=== PATIENT | female | born 1935 | race Caucasian/White ===

== ENCOUNTER 2020-03-31 12:01 | Outpatient (REF) | payer MEDICARE, OTHER, SELFPAY ==
[2020-03-31 12:36] LABS: COVID-19 Test Negative (Negative); IDNOW Serial# 55D5AD1C
== END 2020-03-31 12:02 | disposition home or self-care (01) ==
LOC: HO.LAB 12:01
PROVIDERS: Visit Provider Internal Medicine
DX: Z20.822 Contact with and (suspected) exposure to COVID-19 (principal)
CPT/HCPCS: 36415; 87635; C9803

== ENCOUNTER 2020-05-02 10:20 | Emergency (ER) | payer MEDICARE, OTHER, SELFPAY ==
--- NOTE | ~2020-05-02 | CT_ITS ---
EXAMINATION: CT ABDOMEN AND PELVIS WITHOUT CONTRAST CLINICAL INFORMATION: Atraumatic left hip/flank pain COMPARISON: None TECHNIQUE: Multidetector volumetric imaging was performed from the superior aspect of the liver through the pubic symphysis. Sagittal and coronal reformatted images were obtained on the technologist's workstation. This CT examination was performed using dose optimization techniques as appropriate, variously including the following: *Automated exposure control *Adjustment of mA and/or kV according to patient size (this includes techniques or standardized protocols for targeted exams where dose is matched to indication/reason for exam; i.e. extremities or head) *Use of iterative reconstruction technique DLP: 855 mGy-cm FINDINGS: LUNG BASES: The visualized lung bases are unremarkable. LIVER, GALLBLADDER, AND BILIARY TREE: The liver is normal in size, shape, and attenuation. No focal hepatic lesion or biliary ductal dilatation is present. There are gallstones in the gallbladder. PANCREAS: Unremarkable. SPLEEN: Unremarkable. ADRENAL GLANDS: Unremarkable. KIDNEYS AND URETERS: There are multiple left renal cysts. No stone or hydronephrosis is seen. BLADDER: Unremarkable. GASTROINTESTINAL TRACT: There is diverticulosis of the colon. No evidence of diverticulitis is seen. Small and large bowel are otherwise unremarkable. The appendix is unremarkable. Small hiatal hernia. ABDOMINAL WALL: No significant hernia is appreciated. LYMPH NODES: Normal. VASCULAR: Unremarkable. PELVIC VISCERA: There is low-attenuation seen centrally in the uterus questionable for endometrial fluid or thickening. Endometrial thickness measures 1.1 cm in AP dimension by CT which is abnormally thickened for a postmenopausal patient. The uterus and adnexa are otherwise unremarkable. OSSEOUS STRUCTURES: Unremarkable. CT/CT abdomen pelvis wo con IMPRESSION: 1. Gallstones. Diverticulosis. No evidence of diverticulitis. Left renal cysts. 2. Low-attenuation seen centrally in the uterus questionable for endometrial fluid or thickening. The endometrium appears abnormally thickened for a postmenopausal patient. Follow-up pelvic ultrasound should be considered particularly if there is history of vaginal bleeding.
--- NOTE | ~2020-05-02 | US_ITS ---
EXAMINATION: PELVIC ULTRASOUND CLINICAL INFORMATION: Evaluate thickened endometrium seen on CT scan COMPARISON: Previous CT scan of the abdomen and pelvis from earlier the same day TECHNIQUE: Transabdominal and transvaginal pelvic ultrasound was performed. Transvaginal exam was performed for better visualization of the uterus and ovaries. FINDINGS: The uterus is anteverted and measures 8.2 x 4.1 x 5 cm in dimension. There are 3 small focal uterine lesions suggestive of fibroids measuring 1 cm in the anterior uterine body, 1.3 cm in the anterior uterine body and 1 x 1.5 cm in the posterior uterine body. There is fluid seen within the superior endometrial cavity. More inferiorly in the lower uterine segment there is endometrial thickening measuring 1.1 cm. This is abnormally thickened for a postmenopausal patient. Appearance is questionable for obstruction. There are nabothian cysts in the cervix. The ovaries are seen transabdominally only and are normal-appearing. The right ovary measures 1.6 x 1.7 x 1.4 cm in the left ovary measures 2.6 x 1.8 x 3.2 cm. There is no fluid in the pelvis. US/US transvaginal IMPRESSION: Fluid-filled endometrial cavity. Abnormally thickened endometrium measuring 1.1 cm in the lower uterine segment questionable for obstructing lesion. INTERNAL AUDITOR consultation and tissue sampling recommended. Small uterine fibroids. Normal-appearing ovaries.
--- NOTE | ~2020-05-02 | US_ITS ---
EXAMINATION: PELVIC ULTRASOUND CLINICAL INFORMATION: Evaluate thickened endometrium seen on CT scan COMPARISON: Previous CT scan of the abdomen and pelvis from earlier the same day TECHNIQUE: Transabdominal and transvaginal pelvic ultrasound was performed. Transvaginal exam was performed for better visualization of the uterus and ovaries. FINDINGS: The uterus is anteverted and measures 8.2 x 4.1 x 5 cm in dimension. There are 3 small focal uterine lesions suggestive of fibroids measuring 1 cm in the anterior uterine body, 1.3 cm in the anterior uterine body and 1 x 1.5 cm in the posterior uterine body. There is fluid seen within the superior endometrial cavity. More inferiorly in the lower uterine segment there is endometrial thickening measuring 1.1 cm. This is abnormally thickened for a postmenopausal patient. Appearance is questionable for obstruction. There are nabothian cysts in the cervix. The ovaries are seen transabdominally only and are normal-appearing. The right ovary measures 1.6 x 1.7 x 1.4 cm in the left ovary measures 2.6 x 1.8 x 3.2 cm. There is no fluid in the pelvis. US/US pelvic complete IMPRESSION: Fluid-filled endometrial cavity. Abnormally thickened endometrium measuring 1.1 cm in the lower uterine segment questionable for obstructing lesion. WET ROLLER consultation and tissue sampling recommended. Small uterine fibroids. Normal-appearing ovaries.
[2020-05-02 11:04] VITALS: BP 178/70; PULSE 87; RESP 16; TEMP 37.6; O2SAT 95; BMI 32.9
--- NOTE | 2020-05-02 11:36 | ED_ITS ---
HPI - Extremity Problem General Chief complaint: Extremity Injury, Lower Stated complaint: HIP PAIN Time Seen by Provider: 05/02/20 11:13 Source: patient and family () Mode of arrival: ambulatory Limitations: no limitations History of Present Illness HPI Narrative: 84yoF c PMHx of hyperlipidemia and diverticulosis presenting to the ED with complaints of atraumatic left hip pain for the past week worse with pain which started while she was in [place] vacationing from most 30 days. Denies any falls, trauma that she can recall, dizziness, headaches, nausea/vomiting, chest pain, dyspnea on exertion, orthopnea, palpitations, extremity edema, any symptoms, hematuria, dysuria or any other symptoms complaints or concerns at this time. MD Complaint: extremity pain Onset (ago): week(s) (One week worse today) Pain Consistency: constant Location: left and lower extremity (Hip) Quality: aching and constant Radiation: none Relieving factors: nothing Exacerbating factors: range of motion, weight bearing, walking and palpation Associated symptoms: denies other symptoms Context: recent travel (Came back from [facility] ) Related Data Previous Rx's Medication Instructions Recorded acetaminophen [Tylenol Extra 1,000 mg PO QID PRN #14 tab 05/02/20 Strength] naproxen 500 mg PO BID PRN #10 tab 05/02/20 oxycodone 5 mg PO BID PRN #14 tab 05/02/20 Allergies Allergy/AdvReac Type Severity Reaction Status Date / Time No Known Allergies Allergy Verified 05/02/20 11:04 Review of Systems Review of Systems: Constitutional : No Fever, No Chills Eyes: No Eye Pain, no changes in vision Cardiovascular : No Chest Pain, No SOB, no dyspnea on exertion, no orthopnea Respiratory : No Cough, No Dyspnea Gastrointestinal : No Nausea, No Vomiting, No Diarrhea, No abdominal Pain Genitourinary : No Dysuria, No Hematuria Musculoskeletal : + joint pain, No Myalgias, No Joint Swelling Skin : No Skin lacerations, No rash Neuro : No Weakness, No Numbness, No Paresthesias, No Loss of Consciousness, No Dizziness, No Headache Psych : No Anxiety/Panic, No Depression Heme/Lymph: no easy bruising, no Lymphadenopathy Endocrine : No Polyuria, No Polydipsia Yes all other systems are reviewed and are negative [facility] Past Medical History Attestation statement: The following information was validated with the patient. Medical History High cholesterol Social History Social History Advance Directives: No Advance Directives Information Provided: No Physical Exam Vital Signs: Vital Signs: Last Vital Signs Temp 99.7 F 05/02/20 11:04 Pulse 87 05/02/20 11:04 Resp 16 05/02/20 11:04 BP 178/70 H 05/02/20 11:04 Pulse Ox 95 05/02/20 11:04 Body Mass Index 32.9 vital signs have been reviewed as normal and appeared to be correct. Blood pressure normal. Heart rate normal. Respiration rate normal. Temperature normal. Oxygen saturation normal. Appearance: Alert. Oriented X3. No acute distress. Head: Normal external exam. Normocephalic. Atraumatic. Eyes: PERRLA. EOMI. Conjunctiva and sclera normal. Eyelids normal. ENT: Pharynx normal. Uvula midline. Moist mucous membranes. Neck: Normal inspection. Neck supple. FROM. No adenopathy. No meningeal signs. CVS: Normal heart rate and rhythm. Heart sound normal. No murmurs noted. Pulses normal throughout. Respiratory: No respiratory distress. Painless inspiration. Breath sounds normal. No wheezes/rales/rhonchi noted. Chest nontender. No accessory muscle usage noted or decreased air movement noted. Back: Full range of motion noted. Skin: Skin warm and dry. Normal skin color. Normal skin turgor. No rashes/lesions/lacerations noted. Extremities: Patient with tenderness to palpation to lateral aspect of left hip. No obvious deformities noted. Patient has full range of motion. No rashes/lesion/induration/fluctuance or signs of infection noted. No lower extremity edema. No calf tenderness noted. All other Extremities exhibit normal range of motion and nontender. Patient has a normal steady gait. Neuro: Oriented X 3. No motor deficit. No sensory deficit. Reflexes normal. Course Course Course Narrative: 84yoF c PMHx of hyperlipidemia and diverticulosis presenting to the ED with complaints of atraumatic left hip pain for the past week worse with pain which started while she was in [place] vacationing from most 30 days. Denies any falls, trauma that she can recall, dizziness, headaches, nausea/vomiting, chest pain, dyspnea on exertion, orthopnea, palpitations, extremity edema, any symptoms, hematuria, dysuria or any other symptoms complaints or concerns at this time. - Concern for fx vs muscular starin vs intra-abdominal process such as kidney s tones - Plan: CT scan of abd/pelvis then re-evaluate. Reevaluation(s) Reevaluation #1: - I was called by the radiologist regarding the patient's CT scan of abdomen and pelvis without contrast which revealed a left renal cyst, gallstones and diverticula closest without diverticulitis and there were questioning endometrial thickening and they recommended a follow-up pelvic ultrasound therefore an ultrasound of the pelvic was obtained and reveals fluid- filled endometrial cavity questionable for obstructing lesion although patient reports she is having normal urinary habits no pain or difficulty with urination. Therefore I explained to her and her that they need to follow up with factory superintendent and will DC home with symptomatic treatment they explained they understand and agree with this plan I gave a copy of the ultrasound results. Will DC home at this time. Time: 14:24 MDM - Extremity (Nontraumatic) Medical Records Attestation: I reviewed the patient's medical records. Lab Data Attestation: I reviewed the patient's lab results. Imaging Data CT scan of abdomen and pelvis without contrast: Attestation: I personally reviewed and interpreted this imaging study as follows: Radiologist's impression: FINDINGS: LUNG BASES: The visualized lung bases are unremarkable. LIVER, GALLBLADDER, AND BILIARY TREE: The liver is normal in size, shape, and attenuation. No focal hepatic lesion or biliary ductal dilatation is present. There are gallstones in the gallbladder. PANCREAS: Unremarkable. SPLEEN: Unremarkable. ADRENAL GLANDS: Unremarkable. KIDNEYS AND URETERS: There are multiple left renal cysts. No stone or hydronephrosis is seen. BLADDER: Unremarkable. GASTROINTESTINAL TRACT: There is diverticulosis of the colon. No evidence of diverticulitis is seen. Small and large bowel are otherwise unremarkable. The appendix is unremarkable. Small hiatal hernia. ABDOMINAL WALL: No significant hernia is appreciated. LYMPH NODES: Normal. VASCULAR: Unremarkable. PELVIC VISCERA: There is low-attenuation seen centrally in the uterus questionable for endometrial fluid or thickening. Endometrial thickness measures 1.1 cm in AP dimension by CT which is abnormally thickened for a postmenopausal patient. The uterus and adnexa are otherwise unremarkable. OSSEOUS STRUCTURES: Unremarkable. CT/CT abdomen pelvis wo con IMPRESSION: 1. Gallstones. Diverticulosis. No evidence of diverticulitis. Left renal cysts. 2. Low-attenuation seen centrally in the uterus questionable for endometrial fluid or thickening. The endometrium appears abnormally thickened for a postmenopausal patient. Follow-up pelvic ultrasound should be considered particularly if there is history of vaginal bleeding. Pelvic ultrasound: Attestation: I personally reviewed and interpreted this imaging study as follows: Radiologist's impression: FINDINGS: The uterus is anteverted and measures 8.2 x 4.1 x 5 cm in dimension. There are 3 small focal uterine lesions suggestive of fibroids measuring 1 cm in the anterior uterine body, 1.3 cm in the anterior uterine body and 1 x 1.5 cm in the posterior uterine body. There is fluid seen within the superior endometrial cavity. More inferiorly in the lower uterine segment there is endometrial thickening measuring 1.1 cm. This is abnormally thickened for a postmenopausal patient. Appearance is questionable for obstruction. There are nabothian cysts in the cervix. The ovaries are seen transabdominally only and are normal-appearing. The right ovary measures 1.6 x 1.7 x 1.4 cm in the left ovary measures 2.6 x 1.8 x 3.2 cm. There is no fluid in the pelvis. US/US pelvic complete IMPRESSION: Fluid-filled endometrial cavity. Abnormally thickened endometrium measuring 1.1 cm in the lower uterine segment questionable for obstructing lesion. PLAYERS ASSISTANT consultation and tissue sampling recommended. Small uterine fibroids. Normal-appearing ovaries. Discharge Plan Discharge Clinical Impression: Lesion of uterus, Fibroid Strain of left hip Qualifiers: Encounter type: initial encounter Qualified Code(s): S76.012A - Strain of muscle, fascia and tendon of left hip, initial encounter Patient Disposition: Home, Self-Care Instructions: Hysteroscopy (DC), Needle Biopsy (DC) Additional Instructions: I gave you a copy and her of your ultrasound results regarding her uterine lesion and it is important that you follow-up with factory superintendent consultation you can follow-up with the provider I gave you below or anyone of your wishes. Return if any new or worsening symptoms. Prescriptions: New acetaminophen [Tylenol Extra Strength] 500 mg tablet 1,000 mg PO QID PRN (Reason: fever or pain) Qty: 14 RF: 0 naproxen 500 mg tablet 500 mg PO BID PRN (Reason: pain) Qty: 10 RF: 0 oxycodone 5 mg tablet 5 mg PO BID PRN (Reason: pain) Qty: 14 RF: 0 Referrals: Marvel Basilio MD [Physician] - 2 days (Call on Tuesday for a follow-up as soon as possible for your uterine lesion) Interventions: ED Discharge Assessment Last Done: 05/02/20 14:43 Discharge Date/Time: 05/02/20 14:44 Print Language: Gabonese
[2020-05-02] MEDS: oxyCODONE HCl Immed Release 5 MG TABLET PO (14:38)
== END 2020-05-02 14:44 | disposition home or self-care (01) ==
PROVIDERS: Emergency Provider Emergency Medicine Emergency Medical Services; PCP Family Medicine
DX: S76.012A Strain of muscle, fascia and tendon of left hip, initial encounter (principal); M25.552 Pain in left hip; D25.9 Leiomyoma of uterus, unspecified; R10.2 Pelvic and perineal pain; X58.XXXA Exposure to other specified factors, initial encounter; Y93.9 Activity, unspecified; Y92.9 Unspecified place or not applicable; Y99.9 Unspecified external cause status; Z79.899 Other long term (current) drug therapy
CPT/HCPCS: 74176; 76830; 76856; 99283; 99284

== ENCOUNTER 2020-05-06 09:03 | Outpatient (REF) | payer MEDICARE, OTHER, SELFPAY ==
--- NOTE | ~2020-05-06 | XR_ITS ---
EXAMINATION: XR HIP, LEFT CLINICAL INFORMATION: Pain COMPARISON: None TECHNIQUE: Two views of the left hip. FINDINGS: Bone alignment is normal. No fracture or dislocation is seen. There is mild arthritis at the left hip joint with joint space narrowing and osteophyte formation. Soft tissues are unremarkable. There are degenerative changes of the visualized lower lumbar spine. XR/XR hip LT min 2V IMPRESSION: Mild left hip arthritis.
[2020-05-06 10:45] LABS: Estimated Average Glucose 123 mg/dL; Hemoglobin A1c % 5.9 %
[2020-05-06 10:57] LABS: Alanine Aminotransferase 18 U/L (0-31); Anion Gap 13 (12-20); Blood Urea Nitrogen 19 mg/dL (9-16); Carbon Dioxide 27 mmol/L (22-29); Chloride 106 mmol/L (96-108); Estimated Glomerular Filt Rate > 60; Glucose Fasting 104 mg/dL (60-99); Potassium 4.4 mmol/L (3.3-5.1); Sodium 142 mmol/L (135-145)
== END 2020-05-06 09:04 | disposition home or self-care (01) ==
LOC: HO.LAB 09:03
PROVIDERS: PCP Family Medicine; Visit Provider Family Medicine
DX: M25.552 Pain in left hip (principal)
CPT/HCPCS: 36415; 73502; 80051; 82550; 82565; 82947; 83036; 84460; 84520

== ENCOUNTER 2020-06-23 07:49 | Outpatient (REF) | payer MEDICARE, OTHER, SELFPAY ==
--- NOTE | 2020-06-23 11:38 | MHC.AU.P13 ---
Adult Audiological Evaluation Date of Visit: 06/23/20 Geophysical Laboratory Supervisor Used: Not Applicable Reason for Appointment: Audiologic evaluation due to increasing difficulties hearing, right ear poorer than left Does patient feel they have a hearing loss?: Yes If Yes, Which Ear?: Right Ear When Was Hearing Difficulty First Noticed?: Approximately 3 years ago Has hearing been tested previously?: No Hearing Handicap Inventory: HHIE SCORE: 26 Based on HHIE score, patient has: Severe perceived hearing handicap Ear History: Ear Infections in Childhood: Left ear with lancing of the eardrum Bothersome Tinnitus/Ringing/Noises in Ears: Both ears intermittently Ear used on the phone: Left Ear History of occupational noise exposure?: No Medical History: Medical History: Scarlet Fever Medical History: High Cholesterol Medication List: Bisoprolol, Atorvastatin, Asprin Otoscopy: Right Ear: Unremarkable Left Ear: Unremarkable Tympanometry: Tympanometry performed due to: To assess integrity of the middle ear system Right Ear: Reduced Middle Ear Compliance (Type As) Left Ear: Normal Middle Ear System (Type A) Otoacoustic Emissions Right Ear Results: Not performed at today's visit. Left Ear Results: Not performed at today's visit. 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 - Due to the significantly decreased right ear middle ear function and asymmetric hearing loss, advise medical consultation with an Joinery Patternmaker. - Recommend trial period with a left hearing aid. Demonstrated a Phonak Audeo P 90 rechargeable hearing aid in the office today. Sarah is not ready to commit to trying amplification at this time. - If interested in trying a hearing aid at this office, she may schedule a Hearing Aid Evaluation appointment. Medical clearance from a physician will be needed to obtain amplification and for medical insurance reimbursement. Diagnosis: Primary Diagnosis: H90.3 Bilateral Sensorineural Hearing Loss Secondary Diagnosis: H69.91 Unspecified Eustachian Tube Dysfunction, Right Ear Services Performed: Comprehensive Audiological Evaluation (CPT 61059) Tympanometry (CPT 97930) Signature: Provider: Shraddha Howell, CCC-A
== END 2020-06-23 07:50 | disposition home or self-care (01) ==
LOC: HO.SH 07:49
PROVIDERS: Visit Provider Family Medicine
DX: H90.3 Sensorineural hearing loss, bilateral (principal); H69.91 Unspecified Eustachian tube disorder, right ear
CPT/HCPCS: 92557; 92567

== ENCOUNTER 2020-10-09 10:50 | Outpatient (REF) | payer MEDICARE, OTHER, SELFPAY ==
[2020-10-09 12:01] LABS: MANUAL DIFF FLAG NO
[2020-10-09 12:09] LABS: Basophils Percent Auto 0.2 % (0-2); Eosinophils Absolute Auto 0.2 X10*3/uL (0.0-0.4); Eosinophils Percent Auto 2.3 % (0-4); Hematocrit 45.2 % (37-47); Hemoglobin 15.1 g/dl (12.0-16.0); Imm Gran Abs Auto 0.04 X10*3/uL (0.00-0.03); Imm Gran Pct Auto 0.4 % (0.0-0.4); Lymphocytes Absolute Auto 2.4 X10*3/uL (1.2-4.9); Lymphocytes Percent Auto 26.2 % (20-40); Mean Corpuscular HGB Conc 33.4 g/dl (31.0-35.0); Mean Corpuscular Volume 86.8 fL (80-98); Monocytes Absolute Auto 0.7 X10*3/uL (0.1-1.2); Monocytes Percent Auto 7.1 % (2-11); Neutrophils Absolute Auto 5.8 X10*3/uL (2.0-8.3); Neutrophils Percent Auto 63.8 % (45-73); Platelet Count 248 X10*3/uL (160-400); Red Blood Count 5.21 X10*6/uL (4.20-5.50); Red Cell Distribution Width 13.2 % (11.0-16.0); White Blood Count 9.1 X10*3/uL (4.8-10.8)
[2020-10-09 12:36] LABS: Alanine Aminotransferase 25 U/L (0-31); Anion Gap 13 (12-20); Blood Urea Nitrogen 15 mg/dL (9-16); Carbon Dioxide 27 mmol/L (22-29); Chloride 105 mmol/L (96-108); Estimated Glomerular Filt Rate > 60; Potassium 4.5 mmol/L (3.3-5.1); Sodium 140 mmol/L (135-145)
[2020-10-09 12:59] LABS: Free T4 (Free Thyroxine) 0.88 ng/dL (0.71-1.85)
[2020-10-09 13:07] LABS: Erythrocyte Sedimentation Rate 9 MM/HR (0-20)
== END 2020-10-09 10:51 | disposition home or self-care (01) ==
LOC: HO.LAB 10:50
PROVIDERS: Family Medicine; PCP Internal Medicine; Visit Provider Internal Medicine
DX: R53.1 Weakness (principal); I10 Essential (primary) hypertension; E83.52 Hypercalcemia
CPT/HCPCS: 36415; 80051; 82310; 82565; 84439; 84460; 84520; 85025; 85652

== ENCOUNTER 2021-02-28 09:36 | Emergency (ER) | payer MEDICARE, OTHER, SELFPAY ==
[2021-02-28 09:52] VITALS: BP 155/67; PULSE 72; RESP 16; TEMP 531.8; TEMP 989.2; O2SAT 97; BMI 34.7
[2021-02-28 10:16] LABS: COVID-19 Test Positive (Negative)
--- NOTE | 2021-02-28 10:43 | ED_ITS ---
HPI - URI/Sore Throat General Chief Complaint: Upper Respiratory Symptoms Stated Complaint: close contact with covid + Time Seen by Provider: 02/28/21 10:17 Source: patient Mode of arrival: ambulatory Limitations: no limitations History of Present Illness MD elicited complaint: rhinorrhea and nasal congestion Onset (ago): day(s) ( Past few days) Consistency: constant Severity: mild Description of mucous: clear, watery and yellow Able to tolerate fluids by mouth: Yes Exacerbating factors: nothing Relieving factors: nothing Context: sick contacts ( patient positive for COVID pneumonia here admitted at [facility] since yesterday) Associated symptoms: denies other symptoms Treatments prior to arrival: none Related Data Previous Rx's Medication Instructions Recorded acetaminophen 500 mg tablet 1,000 mg PO QID PRN #14 tab 05/02/20 (Tylenol Extra Strength) naproxen 500 mg tablet 500 mg PO BID PRN #10 tab 05/02/20 oxycodone 5 mg tablet 5 mg PO BID PRN #14 tab 05/02/20 acetaminophen 500 mg tablet 500 mg PO Q6H PRN #14 tab 02/28/21 (Tylenol Extra Strength) ibuprofen 600 mg tablet 600 mg PO Q6H PRN #14 tab 02/28/21 Allergies Allergy/AdvReac Type Severity Reaction Status Date / Time No Known Allergies Allergy Verified 02/28/21 09:52 Review of Systems Review of Systems: Constitutional : No Weight loss, No Fever, No Chills, No Night Sweats, No Fatigue, No Malaise ENT/Mouth : + Rhinorrhea/nasal congestion, No Hearing loss, No Ear Pain, No Sinus Pain, No Hoarseness, No sore throat, No Swallowing Difficulty Eyes: No Eye Pain, No Swelling, No Redness, No Foreign Body, No Discharge, No Vision Changes Cardiovascular : No Chest Pain, No SOB, No Dyspnea on Exertion, No Orthopnea, No Edema, No Palpitations Respiratory : No Cough, No Sputum, No Wheezing, No Smoke Exposure, No Dyspnea Gastrointestinal : No Nausea, No Vomiting, No Diarrhea, No Constipation, No abdominal Pain, No Hematochezia, No Melena Genitourinary : no irregular bleeding, No Dysuria, No Urinary Frequency, No Hematuria, No Urinary Incontinence, No Urgency, No Flank Pain, No Urinary Flow Changes, No Hesitancy Musculoskeletal : No joint pain, No Myalgias, No Joint Swelling Skin : No Skin Lesions, No rash Neuro : No Weakness, No Numbness, No Paresthesias, No Loss of Consciousness, No Dizziness, No Headache Psych : No Anxiety/Panic, No Depression, No SI/HI/AH/VH, No Social Issues, Heme/Lymph: No Bruising, No Bleeding,No Lymphadenopathy Endocrine : No Polyuria, No Polydipsia, No Temperature Intolerance Yes all other systems are reviewed and are negative [facility] Past Medical History Attestation statement: The following information was validated with the patient. Medical History High cholesterol Social History Social History Advance Directives: No Advance Directives Information Provided: Yes Physical Exam Vital Signs: Vital Signs: Last Vital Signs Temp 989.2 F H 02/28/21 09:52 Pulse 72 02/28/21 09:52 Resp 16 02/28/21 09:52 BP 155/67 H 02/28/21 09:52 Pulse Ox 97 02/28/21 09:52 BMI result Body Mass Index 34.7 vital signs have been reviewed as normal and appeared to be correct. Blood pressure 155/67. Heart rate normal. Respiration rate normal. Temperature normal. Oxygen saturation normal. Appearance: Alert. Oriented X3. No acute distress. Head: Normal external exam. Normocephalic. Atraumatic. Eyes: PERRLA. EOMI. Conjunctiva and sclera normal. Eyelids normal. ENT: EAC normal. TM's Normal. Pharynx normal. Uvula midline. Moist mucous membranes. Neck: Normal inspection. Neck supple. FROM. No adenopathy. No meningeal signs. CVS: Normal heart rate and rhythm. Heart sound normal. Pulses normal throughout. No murmurs/rales/gallops. Respiratory: No respiratory distress. Painless inspiration. Breath sounds normal. No wheezes/rales/rhonchi noted. Chest nontender. No accessory muscle usage noted or decreased air movement noted. Back: Full range of motion noted. No rashes/lesion/induration/fluctuance or signs of infection noted. Skin: Skin warm and dry. Normal skin color. Normal skin turgor. No rashes/lesions/lacerations noted. Extremities: Extremities exhibit normal range of motion. Extremities nontender. Neuro: Oriented X 3. No motor deficit. No sensory deficit. Reflexes normal. Normal steady gait. No focal neuro deficits noted. Vascular: + radial pulses Normal cap refill. No cyanosis noted to upper extremity nails Course Course Course Narrative: 85-year-old female presenting to the ED with complaints of runny nose/ nasal congestion for the past few days worse today. Reports that her is currently admitted here for COVID pneumonia since last night. She came here to visit him although they told her that she could not come in and she had to be tested for COVID. She denies any other symptoms complaints or concerns at this time. Patient is positive for COVID. I printed out the results. Will DC home with instructions to follow-up with her primary care provider and possibly the monoclonal antibody clinic and to return if any new or worsening symptoms. Patient understands agrees with this plan. MDM - URI/Sore Throat Medical Records Attestation: I reviewed the patient's medical records. Lab Data Attestation: I reviewed the patient's lab results. Labs: Lab Results 02/28/21 Range/Units 09:50 COVID-19 (FRANCIS) Positive A (Negative) COVID-19 Clin Com See Note Discharge Plan Discharge Clinical Impression: COVID-19 Patient Disposition: Home, Self-Care Instructions: COVID-19 (Coronavirus Disease 2019) (ED) Additional Instructions: You are POSITIVE FOR COVID. You can call [facility] they have a Monoclonal Clinic at [phone] At this time you will be okay for discharge. Please plan for self quarantine for up to 14 days. Do not expose yourself to others. You may not go to work. If testing does come back negative you may return to activities as long as you are no longer having any symptoms for at least 3 days. Please continue to follow cold instructions and wash your hands frequently. You may take Tylenol as directed on the bottle for pain or fever. Patient seen in the emergency department on -------- and should be excused from work until negative test results AND until 72 hours without any symptoms AND at least 10 days have passed since symptoms first appeared or since last exposure to COVID-19 positive patient CDC Guidelines for home isolation: - Stay away from others - WEAR A MASK if you are sick AND STAY HOME - Cover your mouth and nose with a tissue when you cough or sneeze. Dispose of tissues in a lined trash can and wash your hands immediately with soap and water for at least 20 seconds. If soap and water are not available, clean hands with alcohol-based hand public safety telecommunicator that contains at least 60% alcohol. - Clean your hands often with soap and water for at least 20 seconds - Avoid touching your eyes, nose and mouth with unwashed hands - Do not share dishes, drinking glasses, cups, eating utensils, towels, or bedding with other people in your home. After using these items, wash them thoroughly with soap and water or put in the websphere commerce architect. - Clean high-touch surfaces in your isolation area ( sick room and bathroom) every day; let a caregiver clean and disinfect high-touch surfaces in other areas of the home. Clean the area or item with soap and water or another detergent if it is dirty. Then, use a household disinfectant. - Limit contact with pets and animals: If you must care for a pet, wash your hands before and after interacting with them). Prescriptions: New acetaminophen [Tylenol Extra Strength] 500 mg tablet 500 mg PO Q6H PRN (Reason: pain) Qty: 14 RF: 0 ibuprofen 600 mg tablet 600 mg PO Q6H PRN (Reason: fever) Qty: 14 RF: 0 No Action acetaminophen [Tylenol Extra Strength] 500 mg tablet 1,000 mg PO QID PRN (Reason: fever or pain) Qty: 14 RF: 0 naproxen 500 mg tablet 500 mg PO BID PRN (Reason: pain) Qty: 10 RF: 0 oxycodone 5 mg tablet 5 mg PO BID PRN (Reason: pain) Qty: 14 RF: 0 Referrals: Jefferson Mesa MD [Primary Care Provider] - 2 days Print Language: Uzbek
== END 2021-02-28 10:53 | disposition home or self-care (01) ==
PROVIDERS: Emergency Provider Emergency Medicine; PCP Family Medicine
DX: U07.1 COVID-19 (principal)
CPT/HCPCS: 36415; 87635; 99283

== ENCOUNTER 2021-03-30 | Outpatient (REF) | payer MEDICARE, OTHER, SELFPAY ==
[2021-03-30 07:53] LABS: COVID-19 Test Negative (Negative)
== END 2021-03-30 00:01 ==
LOC: HO.LAB
PROVIDERS: Visit Provider Internal Medicine
DX: Z20.822 Contact with and (suspected) exposure to COVID-19 (principal)
CPT/HCPCS: 36415; 87635; C9803

== ENCOUNTER 2021-06-26 06:57 | Outpatient (REF) | payer MEDICARE, OTHER, SELFPAY ==
[2021-06-26 07:33] LABS: Estimated Average Glucose 120 mg/dL; Hemoglobin A1c % 5.8 %
[2021-06-26 08:03] LABS: Anion Gap 13 (12-20); Blood Urea Nitrogen 15 mg/dL (9-16); C Reactive Protein 0.04 mg/dL (< or = 0.50); Carbon Dioxide 28 mmol/L (22-29); Chloride 105 mmol/L (96-108); Glucose Fasting 118 mg/dL (60-99); Potassium 4.5 mmol/L (3.3-5.1); Sodium 141 mmol/L (135-145)
[2021-06-26 08:08] LABS: Calcium 10.3 mg/dL (8.4-10.2)
[2021-06-26 08:19] LABS: Creatinine Urine 127.49 mg/dL; Microalbum/Creatinine Ratio Ur 65.8 ug/mg cr
[2021-06-29 12:41] LABS: Calcium (PTHI) 10.1 mg/dL (8.6-10.4); PTHI 133 pg/mL (16-77)
== END 2021-06-26 06:58 | disposition home or self-care (01) ==
LOC: HO.LAB 06:57
PROVIDERS: PCP Family Medicine; Visit Provider Family Medicine
DX: I10 Essential (primary) hypertension (principal); E03.9 Hypothyroidism, unspecified; E11.9 Type 2 diabetes mellitus without complications
CPT/HCPCS: 36415; 80051; 82043; 82310; 82947; 83036; 83970; 84520; 86140

== ENCOUNTER 2021-12-01 07:37 | Outpatient (REF) | payer MEDICARE, OTHER, SELFPAY ==
[2021-12-01 08:41] LABS: Anion Gap 15 (12-20); Blood Urea Nitrogen 17 mg/dL (9-16); Calcium 9.9 mg/dL (8.4-10.2); Carbon Dioxide 27 mmol/L (22-29); Chloride 103 mmol/L (96-108); Estimated Glomerular Filt Rate > 60; Glucose Fasting 115 mg/dL (60-99); Magnesium 2.1 mg/dL (1.6-2.6); Potassium 3.9 mmol/L (3.3-5.1); Sodium 141 mmol/L (135-145)
[2021-12-01 09:29] LABS: Estimated Average Glucose 123 mg/dL; Hemoglobin A1c % 5.9 %
== END 2021-12-01 07:38 | disposition home or self-care (01) ==
LOC: HO.LAB 07:37
PROVIDERS: PCP Family Medicine; Visit Provider Family Medicine
DX: I10 Essential (primary) hypertension (principal); E83.52 Hypercalcemia
CPT/HCPCS: 36415; 80051; 82310; 82565; 82947; 83036; 83735; 84520

== ENCOUNTER 2022-06-21 10:53 | Outpatient (REF) | payer MEDICARE, OTHER, SELFPAY ==
[2022-06-21 12:45] LABS: Alanine Aminotransferase 25 U/L (0-31); Anion Gap 11 (12-20); Blood Urea Nitrogen 19 mg/dL (9-16); Calcium 10.2 mg/dL (8.4-10.2); Carbon Dioxide 29 mmol/L (22-29); Chloride 103 mmol/L (96-108); Estimated Glomerular Filt Rate > 60; Potassium 4.5 mmol/L (3.3-5.1); Sodium 138 mmol/L (135-145)
[2022-06-22 16:13] LABS: Calcium (PTHI) 10.3 mg/dL (8.6-10.4); PTHI 118 pg/mL (16-77)
== END 2022-06-21 10:54 | disposition home or self-care (01) ==
LOC: HO.LAB 10:53
PROVIDERS: Visit Provider Family Medicine
DX: I10 Essential (primary) hypertension (principal); E78.00 Pure hypercholesterolemia, unspecified; E21.3 Hyperparathyroidism, unspecified; Z79.899 Other long term (current) drug therapy
CPT/HCPCS: 36415; 80051; 82310; 82550; 82565; 83970; 84460; 84520

== ENCOUNTER 2022-12-29 09:12 | Outpatient (REF) | payer MEDICARE, OTHER, SELFPAY ==
[2022-12-29 10:30] LABS: Influenza A PCR NEGATIVE (Negative); Influenza B PCR NEGATIVE (Negative); Resp Syncy Virus RNA Qual PCR NEGATIVE (Negative); SARS COV2 PCR INHOUSE POSITIVE (Negative)
== END 2022-12-29 09:13 | disposition home or self-care (01) ==
LOC: HO.LAB 09:12
PROVIDERS: Visit Provider Family Medicine
DX: R50.9 Fever, unspecified (principal); R05.9 Cough, unspecified
CPT/HCPCS: 0241U

== ENCOUNTER 2023-06-07 07:31 | Outpatient (REF) | payer MEDICARE, OTHER, SELFPAY ==
[2023-06-07 08:17] LABS: Alanine Aminotransferase 34 U/L (0-31); Anion Gap 10 (12-20); Aspartate Amino Transferase 23 U/L (5-31); Blood Urea Nitrogen 19 mg/dL (9-16); Carbon Dioxide 31 mmol/L (22-29); Chloride 107 mmol/L (96-108); Cholesterol 151 mg/dL (<200); Estimated Glomerular Filt Rate > 60; Glucose Fasting 113 mg/dL (60-99); HDL Cholesterol 51 mg/dL (>40); LDL Cholesterol Calculated 80 mg/dL (<100); Potassium 4.1 mmol/L (3.3-5.1); Sodium 144 mmol/L (135-145); Triglycerides 104 mg/dL (<150)
[2023-06-07 08:19] LABS: Estimated Average Glucose 120 mg/dL; Hemoglobin A1c % 5.8 % (<6.0)
[2023-06-07 10:27] LABS: Creatinine Urine 129.19 mg/dL
== END 2023-06-07 07:32 | disposition home or self-care (01) ==
LOC: HO.LAB 07:31
PROVIDERS: PCP Family Medicine; Visit Provider Family Medicine
DX: I10 Essential (primary) hypertension (principal); E78.00 Pure hypercholesterolemia, unspecified; E11.9 Type 2 diabetes mellitus without complications; Z79.899 Other long term (current) drug therapy
CPT/HCPCS: 36415; 80051; 80061; 82043; 82550; 82565; 82570; 82947; 83036; 84450; 84460; 84520

== ENCOUNTER 2023-10-12 10:11 | Outpatient (REF) | payer MEDICARE, OTHER, SELFPAY ==
[2023-10-12 11:53] LABS: Calcium 10.7 mg/dL (8.4-10.2)
[2023-10-12 13:55] LABS: Parathyroid Hormone Intact 154.9 pg/mL (8.7-77.1)
== END 2023-10-12 10:12 | disposition home or self-care (01) ==
LOC: HO.LAB 10:11
PROVIDERS: Visit Provider Family Medicine
DX: E21.0 Primary hyperparathyroidism (principal)
CPT/HCPCS: 36415; 82310; 83970

== ENCOUNTER 2023-12-07 07:26 | Outpatient (REF) | payer MEDICARE, OTHER, SELFPAY ==
[2023-12-07 08:09] LABS: Estimated Average Glucose 123 mg/dL; Hemoglobin A1C 148.6716 umol/L; Hemoglobin A1c % 5.9 % (<6.0)
[2023-12-07 08:32] LABS: Anion Gap 13 (12-20); Blood Urea Nitrogen 18 mg/dL (9-16); Calcium 9.9 mg/dL (8.4-10.2); Carbon Dioxide 29 mmol/L (22-29); Chloride 106 mmol/L (96-108); Estimated Glomerular Filt Rate > 60; Glucose Fasting 112 mg/dL (60-99); Potassium 3.7 mmol/L (3.3-5.1); Sodium 144 mmol/L (135-145)
[2023-12-07 08:33] LABS: Parathyroid Hormone Intact 194.1 pg/mL (8.7-77.1)
[2023-12-07 08:52] LABS: Vitamin D 25-OH Total 18.2 ng/mL (>30)
== END 2023-12-07 07:27 | disposition home or self-care (01) ==
LOC: HO.LAB 07:26
PROVIDERS: PCP Family Medicine; Visit Provider Family Medicine
DX: I10 Essential (primary) hypertension (principal); R73.09 Other abnormal glucose; E21.0 Primary hyperparathyroidism
CPT/HCPCS: 36415; 80051; 82306; 82310; 82565; 82947; 83036; 83970; 84520

== ENCOUNTER 2024-07-28 15:07 | Emergency (ER) | payer MEDICARE, OTHER, SELFPAY ==
--- NOTE | ~2024-07-28 | XR_ITS ---
CLINICAL HISTORY: SOB 2 view chest x-ray Comparison: None Findings: Mild diffuse interstitial pulmonary opacity and bronchial wall thickening. Normal size heart. No acute fracture. IMPRESSION: Mild bronchopneumonia. This document has been electronically signed by: Sarah Snyder MD on 07/28/2024 16:19:33
[2024-07-28 15:12] VITALS: BP 171/66; PULSE 71; RESP 18; TEMP 36.4; O2SAT 97; BMI 31.0
--- NOTE | 2024-07-28 15:15 | ECG_ITS ---
Test Reason : cough Blood Pressure : */* mmHG Vent. Rate : 69 BPM Atrial Rate : 69 BPM P-R Int : 148 ms QRS Dur : 84 ms QT Int : 420 ms P-R-T Axes : 35 17 5 degrees QTcB Int : 450 ms Normal sinus rhythm Nonspecific ST and T wave abnormality Borderline ECG When compared with ECG of 14-May-2005 09:41, Nonspecific ST and T wave abnormality Present Referred By: Generic ED Physician Electronically Signed By: RIGOBERTO ROLLINS
--- NOTE | 2024-07-28 15:29 | ED_ITS ---
HPI - URI/Sore Throat General Chief Complaint: Upper Respiratory Symptoms Stated Complaint: cough Time Seen by Provider: 07/28/24 16:58 Source: patient and family Mode of arrival: ambulatory Limitations: no limitations History of Present Illness ED Provider: Puja Don APRN HPI Narrative: 88-year-old female with history of high cholesterol presents the ER with complaints of nonproductive cough for several days. Per patient her recently had pneumonia. She denies shortness of breath, fever, chest pain, leg swelling, leg pain. Related Data Previous Rx's ?Medication ?Instructions ?Recorded acetaminophen 500 mg tablet 1,000 mg (2 x 500 mg) PO QID PRN 05/02/20 (Tylenol Extra Strength) fever or pain #14 tabs naproxen 500 mg tablet 500 mg PO BID PRN pain #10 tabs 05/02/20 oxycodone 5 mg tablet 5 mg PO BID PRN pain #14 tabs 05/02/20 acetaminophen 500 mg tablet 500 mg PO Q6H PRN pain #14 tabs 02/28/21 (Tylenol Extra Strength) ibuprofen 600 mg tablet 600 mg PO Q6H PRN fever #14 tabs 02/28/21 azithromycin 250 mg tablet 250 mg PO DAILY 4 days #4 tabs 07/28/24 cefpodoxime 100 mg tablet 100 mg PO BID #14 tabs 07/28/24 Allergies Allergy/AdvReac Type Severity Reaction Status Date / Time No Known Allergies Allergy Verified 07/28/24 15:14 Review of Systems 2 Review of Systems: Yes all other systems are reviewed and are negative Constitutional: Constitutional: Reports no additional constitutional complaints, Denies body ache(s), Denies chills, Denies fever(s), Denies headache(s) and Denies weakness Eyes: Eyes: Reports no additional eye complaints and Denies change in vision ENT: Reports system reviewed and no additional complaints, except as documented, Denies dizziness, Denies headache(s), Denies nasal congestion, Denies nasal discharge and Denies neck pain Cardiovascular: Cardiovascular: Reports no additional cardiovascular complaints, Denies chest pain, Denies leg edema and Denies dyspnea Respiratory: Respiratory: Reports no additional respiratory complaints, Reports cough and Denies dyspnea Gastrointestinal: Gastrointestinal: Reports no additional gastrointestinal complaints, Denies abdominal pain, Denies diarrhea, Denies nausea and Denies vomiting Genitourinary: Genitourinary: Reports no additional female genitourinary complaints and Denies urinary incontinence Musculoskeletal: Musculoskeletal: Reports no additional musculoskeletal complaints, Denies back pain, Denies arthralgias, Denies joint swelling, Denies neck pain, Denies numbness and Denies tingling Integumentary/Breasts: Skin/Breast: Reports system reviewed and no additional complaints, except as docu and Denies rash Neurologic: Reports system reviewed and no additional complaints, except as documented, Denies Abnormal speech present, Denies dizziness, Denies headache(s), Denies numbness, Denies tingling and Denies weakness PMFSH Past Medical History Attestation statement: The following information was validated with the patient. Source: old records reviewed and nursing notes reviewed Medical History High cholesterol Social History Social History Smoked in Last 30 Days: No Use of substances other than those prescribed or required for medical reasons: No Advance Directives: Yes Advance Directives Information Provided: Yes Advance Directives on File: No Physical Exam 2 Vital Signs: Vital Signs: Last Vital Signs Temp 97.6 F 07/28/24 15:12 Pulse 71 07/28/24 15:12 Resp 18 07/28/24 15:12 BP 171/66 H 07/28/24 15:12 Pulse Ox 97 07/28/24 15:12 O2 Del Method Room Air 07/28/24 15:12 BMI result Body Mass Index 31.0 Const: General: cooperative, healthy appearing, comfortable and no acute distress Orientation/consciousness: patient oriented x3 Limitations: no limitations HEENT: Head: Yes normal to inspection Ears: hearing grossly normal bilaterally and TM's normal bilaterally General nose exam: Normal external nose present Face and sinus: Yes normal facial exam Mouth: Normal oral and palatal mucosa present Throat: Yes posterior oropharynx normal, Yes tonsils normal and Yes uvula midline Eyes: General: appearance normal, both eyes and all related structures P upils: Equal, round and reactive pupils present Neck: Neck: Yes normal visual inspection, Yes full ROM, Yes no lymphadenopathy and Yes no meningeal signs Chest: Chest palpation & inspection: normal inspection of the chest Resp: Effort & Inspection: normal respiratory effort Auscultation: clear to auscultation bilaterally Cardio: Rate: regular rate Rhythm: regular rhythm Peripheral pulses: P eripheral pulses 2+ throughout GI: Inspection: Yes normal to inspection Palpation (GI): Soft to palpation and nontender Auscultation: normal bowel sounds Back/Spine/Pelvis: Thoracic/Lumbar Spine: thoracic and lumbar spine normal to inspection Skin: General skin exam: no rashes or lesions noted Neuro: General: patient oriented x3, no meningeal signs, no focal motor deficits and normal sensation to monofilament Cranial nerves: Yes Equal, round and reactive pupils present Cognition (Neuro): normal cognition S peech: No Abnormal speech present Gait exam (Neuro): Normal gait present M otor exam (neuro): 5/5 motor strength present throughout Extrem: General: Yes normal to inspection, Yes no pedal edema and Yes no calf tenderness Course Course Course Narrative: This is an RME performed by Reggie Nelson CNP: Additional HPI, ROS, PE not included below will be deferred to primary provider. Patient is an 88-year-old female who presents emergency department with her who is currently being treated himself, she states that she has been experiencing a dry nonproductive cough over the past 2 days without associated shortness of breath or chest pain. Plan: CXR, viral serologies Reevaluation(s) Reevaluation #1: X-ray shows mild pneumonia. Patient has a mild leukocytosis. She is not hypoxic or tachypneic. She is well-appearing. Afebrile. Will discharge her home with a oral antibiotic. Reviewed worrisome signs and symptoms of when to return to the emergency room. Comfortable plan for discharge home. Medical Decision Making Medical Decision Making [facility] Narrative: 88-year-old female with history of high cholesterol presents the ER with complaints of nonproductive cough for several days. Per patient her recently had pneumonia. She denies shortness of breath, fever, chest pain, leg swelling, leg pain. Vitals stable. Nontoxic appearing. Lungs are clear. Will obtain viral testing, chest x-ray Will review labs and EKG ordered from triage Differential Diagnosis Differential Diagnoses: The differential diagnosis associated with the presentation includes Pneumonia, viral illness, influenza Admission/Observation Consideration of admission/observation: Escalation of care including admission/observation considered Lab Data [facility] Lab Attestation statement: I reviewed the patient's lab results. 07/28/24 15:41 07/28/24 15:41 Labs: Lab Results 07/28/24 Range/Units 15:41 WBC 12.2 H (4.8-10.8) X10*3/uL RBC 5.68 H (4.20-5.50) X10*6/uL Hgb 16.0 (12.0-16.0) g/dl Hct 47.4 H (37.0-47.0) % MCV 83.5 (80.0-98.0) fL MCH 28.2 (27.0-33.0) pg MCHC 33.8 (31.0-35.0) g/dl RDW 13.4 (11.0-16.0) % Plt Count 358 (160-400) X10*3/uL MPV 10.0 (9.4-12.3) fL Immature Gran % (Auto) 0.6 H (0.0-0.4) % Neut % (Auto) 76.8 H (45-73) % Lymph % (Auto) 16.9 L (20-40) % [place] % (Auto) 4.9 (2-11) % Eos % (Auto) 0.6 (0-4) % Baso % (Auto) 0.2 (0-2) % Lymph # (Auto) 2.1 (1.2-4.9) X10*3/uL [place] # (Auto) 0.6 (0.1-1.2) X10*3/uL Eos # (Auto) 0.1 (0.0-0.4) X10*3/uL Baso # (Auto) 0.0 (0.0-0.2) X10*3/uL Abs Immat Gran (auto) 0.07 H (0.00-0.03) X10*3/uL Absolute Neuts (auto) 9.4 H (2.0-8.3) x10*3/uL Absolute Nucleated RBC 0.000 (0.0-0.012) X10*3/uL Nucleated RBC % (auto) 0.0 (0.0-0.2) /100WBC Sodium 142 (135-145) mmol/L Potassium 3.6 (3.3-5.1) mmol/L Chloride 103 (96-108) mmol/L Carbon Dioxide 27 (22-29) mmol/L Anion Gap 16 (12-20) BUN 19 H (9-16) mg/dL Creatinine 0.89 (0.5-1.4) mg/dL Estim Creat Clear Calc 41.9 Estimated GFR 60 Random Glucose 103 (60-115) mg/dL Calcium 10.6 H D (8.4-10.2) mg/dL B-Natriuretic Peptide 66 (<100) pg/mL Influenza Type A (PCR) NEGATIVE (Negative) Influenza Type B (PCR) NEGATIVE (Negative) RSV RNA Qual (PCR) NEGATIVE (Negative) SARS-CoV-2 RNA (RT-PCR) NEGATIVE (Negative) Independent Interpretation I performed an independent interpretation of an: EKG and Plain X-Ray Interpretation: I independently viewed the x-ray and agree with the radiology report I independently viewed the EKG which shows normal sinus rhythm with a rate of 69, normal GA, normal QRS, normal QT Radiology Impression Discussion of test interpretation with radiology: I have reviewed the radiologist's reading. Radiologist Impression: [place] [id number] XRay Report Signed Patient: Sarah Harper MR#: [id number] : 1935 Acct:[id number] Age/Sex: 88 / F ADM Date: 07/28/24 Loc: .ED Attending Dr: Ordering Physician: Generic ED Physician Date of Service: 07/28/24 Procedure(s): XR chest 2V Accession Number(s): [id number] cc: Generic ED Physician; Jefferson Mesa MD~ CLINICAL HISTORY: SOB 2 view chest x-ray Comparison: None Findings: Mild diffuse interstitial pulmonary opacity and bronchial wall thickening. Normal size heart. No acute fracture. IMPRESSION: Mild bronchopneumonia. This document has been electronically signed by: Sarah Snyder MD on 07/28/2024 16:19:33 Independent Historian Clinical information obtained from an independent historian. History obtained from or confirmed by: Spouse Prescription Management I considered prescription management with: Antibiotic Discharge Plan Discharge Clinical Impression: CAP (community acquired pneumonia) Patient Disposition: Home, Self-Care Instructions: Community Acquired Pneumonia (ED) Additional Instructions: Start taking your antibiotic tomorrow Return for fever, difficulty breathing or chest pain Prescriptions: New azithromycin 250 mg tablet 250 mg PO DAILY 4 Days Qty: 4 0RF Rx Instructions: start on day 2 of therapy cefpodoxime 100 mg tablet 100 mg PO BID Qty: 14 0RF Rx Instructions: must administer with a meal/food No Action acetaminophen [Tylenol Extra Strength] 500 mg tablet 1,000 mg PO QID PRN (Reason: fever or pain) Qty: 14 0RF naproxen 500 mg tablet 500 mg PO BID PRN (Reason: pain) Qty: 10 0RF oxycodone 5 mg tablet 5 mg PO BID PRN (Reason: pain) Qty: 14 0RF acetaminophen [Tylenol Extra Strength] 500 mg tablet 500 mg PO Q6H PRN (Reason: pain) Qty: 14 0RF ibuprofen 600 mg tablet 600 mg PO Q6H PRN (Reason: fever) Qty: 14 0RF Referrals: Jefferson Mesa MD [Primary Care Provider] - 1 week Print Language: Ugandan
[2024-07-28 15:54] LABS: MANUAL DIFF FLAG NO
[2024-07-28 15:55] LABS: Basophils Percent Auto 0.2 % (0-2); Eosinophils Absolute Auto 0.1 X10*3/uL (0.0-0.4); Eosinophils Percent Auto 0.6 % (0-4); Hematocrit 47.4 % (37.0-47.0); Imm Gran Abs Auto 0.07 X10*3/uL (0.00-0.03); Imm Gran Pct Auto 0.6 % (0.0-0.4); Lymphocytes Absolute Auto 2.1 X10*3/uL (1.2-4.9); Lymphocytes Percent Auto 16.9 % (20-40); Mean Corpuscular HGB Conc 33.8 g/dl (31.0-35.0); Mean Corpuscular Hemoglobin 28.2 pg (27.0-33.0); Mean Corpuscular Volume 83.5 fL (80.0-98.0); Monocytes Absolute Auto 0.6 X10*3/uL (0.1-1.2); Monocytes Percent Auto 4.9 % (2-11); Neutrophils Absolute Auto 9.4 x10*3/uL (2.0-8.3); Neutrophils Percent Auto 76.8 % (45-73); Platelet Count 358 X10*3/uL (160-400); Red Blood Count 5.68 X10*6/uL (4.20-5.50); Red Cell Distribution Width 13.4 % (11.0-16.0); White Blood Count 12.2 X10*3/uL (4.8-10.8)
[2024-07-28 16:14] LABS: Anion Gap 16 (12-20); Blood Urea Nitrogen 19 mg/dL (9-16); Calcium 10.6 mg/dL (8.4-10.2); Carbon Dioxide 27 mmol/L (22-29); Chloride 103 mmol/L (96-108); Creatinine Clr Calc Pharmacy 41.9; Estimated Glomerular Filt Rate 60; Glucose Random 103 mg/dL (60-115); Potassium 3.6 mmol/L (3.3-5.1); Sodium 142 mmol/L (135-145)
[2024-07-28 16:22] LABS: B Type Natriuretic Peptide 66 pg/mL (<100)
[2024-07-28 16:37] LABS: Influenza A PCR NEGATIVE (Negative); Influenza B PCR NEGATIVE (Negative); Resp Syncy Virus RNA Qual PCR NEGATIVE (Negative); SARS COV2 PCR INHOUSE NEGATIVE (Negative)
[2024-07-28] MEDS: cefuroxime axetiL 250 MG TABLET PO (17:13)
[2024-07-28] MEDS: Azithromycin 500 MG TABLET PO (17:13)
[2024-07-28 17:16] VITALS: BP 168/76; PULSE 67; RESP 14; O2SAT 98
[2024-07-28 17:39] VITALS: BP 168/76; PULSE 67; RESP 14; TEMP 36.7; O2SAT 98
== END 2024-07-28 17:39 | disposition home or self-care (01) ==
PROVIDERS: Nurse Practitioner Family; Emergency Provider Emergency Medicine; PCP Family Medicine
DX: J18.9 Pneumonia, unspecified organism (principal); R05.9 Cough, unspecified; R06.02 Shortness of breath; Z03.818 Encounter for observation for suspected exposure to other biological agents ruled out; E78.00 Pure hypercholesterolemia, unspecified; Z79.899 Other long term (current) drug therapy
CPT/HCPCS: 0241U; 36415; 71046; 80048; 83880; 85025; 93005; 99283; 99285

== ENCOUNTER → 2024-07-28 15:15 | Outpatient (BNV) | payer MEDICARE, OTHER, SELFPAY | PROVIDERS: Emergency Provider Emergency Medicine; PCP Family Medicine; Visit Provider Radiology Diagnostic Radiology | DX: J18.0 Bronchopneumonia, unspecified organism (principal); R06.02 Shortness of breath | CPT/HCPCS: 71046 ==

== ENCOUNTER → 2024-07-28 15:15 | Outpatient (BNV) | payer MEDICARE, OTHER, SELFPAY | PROVIDERS: Emergency Provider Emergency Medicine; PCP Family Medicine; Visit Provider Internal Medicine | DX: R05.9 Cough, unspecified (principal) | CPT/HCPCS: 93010 ==

== ENCOUNTER 2024-08-30 07:06 | Outpatient (REF) | payer MEDICARE, OTHER, SELFPAY ==
--- OUTSIDE RECORDS SUMMARY | 2024-08-30 07:09 | XMS_ITS | Patient Health Record ---
[facility] Address [address] [place] [address] Care Team Providers Care Certified Energy Manager Name Role Phone Moshe MOYA, Jefferson Primary Care Provider Seamus Wilcox Unavailable [phone] Allergies No Known Allergies Reason For Referral No Information Medications Medication SIG (Take, Route, Frequency, Duration) Notes Start Date End Date Status Lisinopril Active Baby Aspirin Active Atorvastatin Calcium 20 MG Oral for 90 Active Immunizations Vaccine Route Administration Date Status Comme nts COVID-19 Moderna Vaccine Unknown 05/01/2020 Administere d 03/31/2020 Social History Tobacco Use: Social History Observation Description Date Details (start date - stop date) Never Smoker NA - NA Tobacco Use/Smoking Question Answer Notes Are you a: nonsmoker Alcohol Screen Question Answer Notes Did you have a drink containing alcohol in the p ast year? No Points 0 Interpretation Negative Tobacco use other than smoking: Question Answer Notes Are you an other tobacco user? No Plan Of Treatment No Information Insurance Providers Payer Name Payer Address Payer Phone Subscriber Number Group Number Insured Name Patient Relationship to Insured Coverage Start Date Coverage End Date Medicare National [facility] [address] [place] [address] [id number] Leroy Sarah Self - patient is the insured [employer] [address] [place] [address] [phone] [id number] Inna Harperley Self - patient is the insured Medical (General) History Medical History History ICD Code High blood pressure Scarlet fever Measles Mumps Chicken pox Surgical History Surgery Date(Month/Year)
[2024-08-30 07:56] LABS: Parathyroid Hormone Intact 120.5 pg/mL (8.7-77.1)
[2024-08-30 08:07] LABS: Basophils Percent Auto 0.6 % (0-2); Eosinophils Absolute Auto 0.2 X10*3/uL (0.0-0.4); Eosinophils Percent Auto 2.4 % (0-4); Hematocrit 46.2 % (37.0-47.0); Hemoglobin 15.4 g/dl (12.0-16.0); Imm Gran Abs Auto 0.02 X10*3/uL (0.00-0.03); Imm Gran Pct Auto 0.3 % (0.0-0.4); Lymphocytes Absolute Auto 0.8 X10*3/uL (1.2-4.9); Lymphocytes Percent Auto 10.9 % (20-40); MANUAL DIFF FLAG NO; Mean Corpuscular HGB Conc 33.3 g/dl (31.0-35.0); Mean Corpuscular Hemoglobin 28.6 pg (27.0-33.0); Mean Corpuscular Volume 85.7 fL (80.0-98.0); Mean Platelet Volume 10.9 fL (9.4-12.3); Monocytes Absolute Auto 0.6 X10*3/uL (0.1-1.2); Monocytes Percent Auto 7.8 % (2-11); Neutrophils Absolute Auto 5.6 x10*3/uL (2.0-8.3); Platelet Count 243 X10*3/uL (160-400); Red Blood Count 5.39 X10*6/uL (4.20-5.50); Red Cell Distribution Width 14.5 % (11.0-16.0); White Blood Count 7.2 X10*3/uL (4.8-10.8)
[2024-08-30 08:31] LABS: Estimated Average Glucose 123 mg/dL; Hemoglobin A1c % 5.9 % (<6.0)
[2024-08-30 08:32] LABS: Alanine Aminotransferase 37 U/L (0-31); Anion Gap 11 (12-20); Aspartate Amino Transferase 30 U/L (5-31); Blood Urea Nitrogen 14 mg/dL (9-16); Calcium 10.7 mg/dL (8.4-10.2); Carbon Dioxide 32 mmol/L (22-29); Chloride 105 mmol/L (96-108); Estimated Glomerular Filt Rate > 60; Glucose Fasting 102 mg/dL (60-99); Potassium 4.2 mmol/L (3.3-5.1); Sodium 144 mmol/L (135-145)
== END 2024-08-30 07:07 | disposition home or self-care (01) ==
LOC: HO.LAB 07:06
PROVIDERS: PCP Family Medicine; Visit Provider Family Medicine
DX: I10 Essential (primary) hypertension (principal); E78.00 Pure hypercholesterolemia, unspecified; E11.9 Type 2 diabetes mellitus without complications; R63.4 Abnormal weight loss; E03.9 Hypothyroidism, unspecified
CPT/HCPCS: 36415; 80051; 82310; 82550; 82565; 82947; 83036; 83970; 84450; 84460; 84520; 85025

== ENCOUNTER 2025-02-04 11:17 | Outpatient (AMB) | payer MEDICARE, OTHER, SELFPAY ==
--- NOTE | 2025-02-04 11:20 | A.OFFPC_ITS ---
Vital Signs 02/04/25 11:33 Height 5 ft 2 in Weight 168 lb BMI 30.7 BP 128/74 Blood Pressure Location Lt brachial Position Sitting Pulse 57 Pulse Source Pulse Oximeter Temp 97.7 F Temp Source Temporal Artery Scan Pulse Oximetry (%) 98 Oxygen Delivery Method Room Air Intake Visit Reasons: routine - see comments Plasterer Helper Required: No Accompanied by: Spouse Allergies No Known Allergies Allergy (Verified 02/04/25 11:37) Tobacco use date assessed: 02/04/25 Fall risk assessment: No Falls in past year Last assessed Fall Risk: 02/04/25 Dental Screening Dental Screen Date: 02/04/25 Did you have a dental visit in the last 12 months?: Yes Did you have a dental problem in the last 6 months where you did not have access to dental care?: No [facility] Medical History (Updated 02/04/25 @ 12:17 by Jae Khan MD) Weight loss Concern about memory Bilateral hearing loss Memory changes Hypertension High cholesterol Family History (Updated 02/04/25 @ 11:38 by Lakia Bloom MA) Mother No problems noted. Father No problems noted. Social History Housing: House Patient Tobacco Use Status: Former Tobacco user e-Cigarette/Vaping Use: Former Use service: No Current occupational status: retired Cognitive needs: No Hearing needs: No Vision needs: Yes (rx glasses) Questionnaire PHQ-9 Over the last 2 weeks, how often have you been bothered by any of the following problems? 1. Little interest or pleasure in doing things: not at all 2. Feeling down, depressed, or hopeless: not at all 3. Trouble falling or staying asleep, or sleeping too much: not at all 4. Feeling tired or having little energy: not at all 5. Poor appetite or overeating: not at all 6. Feeling bad about yourself - or that you are a failure or have let yourself or your family down: not at all 7. Trouble concentrating on things, such as reading the newspaper or watching television: not at all 8. Moving or speaking so slowly that other people could have noticed. Or the opposite - being so fidgety or restless that you have been moving around a lot more than usual: not at all 9. Thoughts that you would be better off or of hurting yourself in some way: not at all Total score: 0 Source: Developed by Drs. Dieudonne Martínez, Aurora Santana, Ck Franks and colleagues, with an educational lexie from [employer]. Thrive Questionnaire Date Thrive assessed: 02/04/25 I am a: Patient Within the past 12 months, did the food you bought not last and you didn't have the money to get more?: Never true Within the past 12 months, did you worry whether your food would run out before you got money to buy more?: Never true Do you have trouble paying for medicines?: No Do you have trouble getting transportation to medical appointments?: No Do you have trouble paying your heating and electricity bill?: No Do you have trouble taking care of your child, family member or friend?: No Do you have trouble with day-to-day activities such as bathing, preparing meals, shopping, managing finances, etc.?: No Are you currently unemployed and looking for a job?: No Are you interested in more education?: No THRIVE Score: 0 AUDIT C Alcohol Use Questionnaire (AUDIT-C) 1. How often do you have a drink containing alcohol?: Never 3. How often do you have six or more drinks on one occasion?: Never Total Score: 0 JAMAAL-7 AMB Questionnaire JAMAAL-7 Date JAMAAL - 7 assessed: 02/04/25 Feeling nervous, anxious, or on edge: 0 = Not at all Not being able to stop or control worryin = Not at all Worrying too much about different things: 0 = Not at all Trouble relaxin = Not at all Being so restless that it is hard to sit still: 0 = Not at all Becoming easily annoyed or irritable: 0 = Not at all Feeling afraid as if something awful might happen: 0 = Not at all Total JAMAAL-7 score (0-4 normal; 5-9 mild; 10-14 moderate; 15-21 severe): 0 Source: Developed by Drs. Dieudonne Martínez, Ck Wasserman and colleagues, with an educational lexie from [employer]. Physical exam (Primary Care) Vital Signs: Last Vital Signs Temp 97.7 F 02/04/25 11:33 Pulse 57 11/10/25 11:33 BP 128/74 02/04/25 11:33 Pulse Ox 98 02/04/25 11:33 Oxygen Delivery Method Room Air 02/04/25 11:33 BMI result Body Mass Index 30.7 Tobacco/Smoking Status: Tobacco use Status Tobacco use date assessed 02/04/25 02/04/25 11:38 Patient Tobacco Use Status Former Tobacco user 02/04/25 11:21 e-Cigarette/Vaping Use Former Use 02/04/25 11:21 PHQ-9: PHQ-9 Score PHQ-9: Total score 0 02/04/25 11:38 Thrive Assessment: Date of Thrive Assessment Date Thrive assessed 02/04/25 02/04/25 11:38 Coding Level of Care Code Est Pt Level 4 (96023) Complex EM visit Add On G2211 Diagnoses Sensorineural hearing loss (SNHL) of both ears H90.3 Hearing loss type: sensorineural Concern about memory R41.89 Weight loss R63.4 Primary hypertension I10 Hypertension type: primary hypertension Medication management Z79.899 Advance care planning Z71.89 High cholesterol E78.00 Assessment & Plan Assessment & Plan (1) Bilateral hearing loss: Comment: - This is a significant issue potentially contributing to social withdrawal and being mistaken for worsening cognitive decline. - The patient is resistant to using her current hearing aids. - It was recommended to try Apple AirPods Pro as a less medical-appearing alternative, suggesting they could be used for phone calls or listening to books to improve acceptance. Code(s): H91.93 - Unspecified hearing loss, bilateral Category: Medical Qualifiers: Hearing loss type: sensorineural Qualified Code(s): H90.3 - Sensorineural hearing loss, bilateral (2) Concern about memory: Comment: - The patient is on donepezil. - It is suspected that the hearing loss is a major contributing factor to her perceived memory issues and may be exacerbating them. - Her neurology appointment for April 11 will be rescheduled. Code(s): R41.89 - Other symptoms and signs involving cognitive functions and awareness Category: Medical (3) Weight loss: Comment: - The patient has experienced significant weight loss. - It was recommended to increase nutritional supplementation with protein shakes (e.g., Boost) to three times a day, in addition to her regular meals, to address this. Code(s): R63.4 - Abnormal weight loss Category: Medical (4) Hypertension: Comment: Pressures well controlled on clinic today at 128/74. Currently being managed on metoprolol succinate 25 mg daily and hydrochlorothiazide 12.5 mg daily Code(s): I10 - Essential (primary) hypertension Category: Medical Qualifiers: Hypertension type: primary hypertension Qualified Code(s): I10 - Essential (primary) hypertension (5) Medication management: Code(s): Z79.899 - Other group home (current) drug therapy Plan: - To simplify the medication regimen and improve ease of administration for the caregiver, the plan is to consolidate all medications, including the baby aspirin, to a single morning dose. (6) Advance care planning: Code(s): Z71.89 - Other specified counseling Plan: - Durable Power of [employer] Loading Machine Operator (DPOA) paperwork was not found in the system. - The caregiver was advised to organize and have this paperwork completed. (7) High cholesterol: Comment: - Given the patient's advanced age of 89, the lack of evidence for statin be nefit in primary prevention over age 79, and no history of cardiac disease, the plan is to discontinue atorvastatin and coenzyme Q. - Her last LDL was 80. Code(s): E78.00 - Pure hypercholesterolemia, unspecified Category: Medical Plan: Health Maintenance: - Medication de-prescribing: Discussed discontinuing atorvastatin due to advanced age and lack of cardiac history. - Medication Regimen Simplification: Recommended consolidating all medications into a once-daily morning dose to improve ease of administration. - Nutritional Counseling: Advised increasing protein shake supplementation to three times a day to combat weight loss. - Advance Care Planning: Discussed the need for Durable Power of Joy Loading Machine Operator (DPOA) paperwork. - Specialist Follow-up: A neurology appointment is scheduled but needs to be rescheduled to address cognitive concerns. Patient was informed and verbally consented to the use of an ambient scribe for clinic note documentation during this visit. Plan I had a detailed discussion with the patient's caregiver regarding simplifying her medication regimen. I explained that there is limited evidence for the benefit of statins like atorvastatin in individuals over the age of 79 without a history of cardiac disease, and her last LDL was only 80. We agreed to discontinue the atorvastatin and coenzyme Q once the current supply is finished and to move all her medications to a single morning dose for easier administration. I expressed my significant concern that the patient's untreated hearing loss is the root cause of her social withdrawal and may be mistaken for a worsening of her memory problems, potentially leading to depression. Given her strong refusal to wear her hearing aids, I suggested trying [employer] AirPods Pro as a less medical-appearing alternative, which could be presented as a gift for using her phone. I provided information that these are available at the [employer] in the [employer]. We also discussed her significant weight loss, and I recommended increasing her nutritional protein shake supplements from twice to three times daily. Finally, I noted that Durable Power of Joy Loading Machine Operator paperwork was not in her file and advised the caregiver to ensure this is completed. Patient Instructions: - When your current supply runs out, you can stop taking atorvastatin (for cholesterol) and Coenzyme Q. - To make it easier, you can take all of your daily pills at one time in the morning. - To help with your weight, please drink a Boost or other protein shake three times a day, in addition to your regular meals. - We suggest trying [employer] AirPods Pro as an option for helping you hear. They look like regular headphones and can be purchased at the [employer] in the [employer]. - Please reschedule the neurology appointment that is currently set for April 11, as you will be away. - Please make sure to complete and provide a copy of the Durable Power of Joy Loading Machine Operator (DPOA) paperwork.
[2025-02-04 11:33] VITALS: BP 128/74; PULSE 57; TEMP 36.5; O2SAT 98; BMI 30.7
== END 2025-02-04 12:10 | disposition home or self-care (01) ==
LOC: HO.HMCHD 11:18
PROVIDERS: PCP Student in an Organized Health Care Education/Training Program; Visit Provider Student in an Organized Health Care Education/Training Program
DX: H90.3 Sensorineural hearing loss, bilateral (principal); R41.89 Other symptoms and signs involving cognitive functions and awareness; R63.4 Abnormal weight loss; I10 Essential (primary) hypertension; Z79.899 Other long term (current) drug therapy; Z71.89 Other specified counseling; E78.00 Pure hypercholesterolemia, unspecified

== ENCOUNTER → 2025-02-04 11:17 | Outpatient (BNVA) | payer MEDICARE, OTHER, SELFPAY | PROVIDERS: PCP Student in an Organized Health Care Education/Training Program; Visit Provider Student in an Organized Health Care Education/Training Program | DX: H90.3 Sensorineural hearing loss, bilateral (principal); R41.89 Other symptoms and signs involving cognitive functions and awareness; R63.4 Abnormal weight loss; Z68.30 Body mass index [BMI] 30.0-30.9, adult; I10 Essential (primary) hypertension; E78.00 Pure hypercholesterolemia, unspecified; Z71.89 Other specified counseling; Z79.899 Other long term (current) drug therapy; Z13.30 Encounter for screening examination for mental health and behavioral disorders, unspecified; Z13.39 Encounter for screening examination for other mental health and behavioral disorders | CPT/HCPCS: 96127; 99212 ==